=== PATIENT | female | born 1955 | race Caucasian/White ===

== ENCOUNTER 2019-11-04 17:08 | Emergency (ER) | payer MEDICAID ==
[~2019-11-04] VITALS: Ht 157.5 cm; Wt 40.0 kg
[~2019-11-04 17:08] MED LIST: ALBU18HF2 INH; ASPI81TA52 PO; BUDE10.2 INH; DOXY-1 PO; HYDR-4353 PO; LEVO75TA PO; MORP30TA PO; MORP60CP14 PO; OMEP20CA15 PO; ZOC40T PO; [UNRECOGNIZED DRUG - CODE] PO; metoprolol PO
[2019-11-04] MEDS ORDERED: metroNIDAZOLE 500mg tablet PO STA (18:11)
[2019-11-04] MEDS ORDERED: DOXYCYCLINE 100MG CAPSULE PO STA (18:11)
[2019-11-04] MEDS ORDERED: METR500T PO (18:16)
[2019-11-04 18:40] VITALS: BP 104/69
== END 2019-11-04 18:41 | disposition home or self-care (01) ==
LOC: ER 17:10
DX: S51.811D Laceration without foreign body of right forearm, subsequent encounter (principal); I25.2 Old myocardial infarction; G89.29 Other chronic pain; Z86.73 Personal history of transient ischemic attack (TIA), and cerebral infarction without residual deficits; Z91.018 Allergy to other foods; Z91.041 Radiographic dye allergy status; Z88.0 Allergy status to penicillin; Z88.2 Allergy status to sulfonamides; Z79.82 Long term (current) use of aspirin; W54.0XXD Bitten by dog, subsequent encounter
CPT/HCPCS: 99283; J3490

== ENCOUNTER 2025-02-15 09:19 | Outpatient (CLI) | payer MEDICARE, MEDICAID ==
[~2025-02-15 09:19] MED LIST changes: -DOXY-1 PO
--- NOTE | 2025-02-15 10:24 | RADIOLOGY REPORT ---
CT Chest without intravenous contrast INDICATION: LUNG CA SCREENING TECHNIQUE: Multidetector spiral CT of the chest was performed from the lung apices to the upper abdom en. Axial, coronal and sagittal multiplanar reformats were performed. Radiation dose : Chest: CTDI volume is 1 mGy. Dose-length product is 69 mGy*cm The dose indicators for CT are the volume computed tomography (CT) dose index (CTDIvol) and the dose length product (DLP), and are measured in units of mGy and mGy-cm, respectively. These indicators are not patient dose, but values generated from the CT scanner acquisition factors. The report includes radiation exposure data for exposures received during this examination. Comparison: None Findings: Lower neck: Normal thyroid. Lungs: Bilateral apical pleural-parenchymal scarring. Subpleural nodularity posterior right upper lob e. Ground-glass opacity right upper lobe. Atelectasis and scarring in the lung bases. Heart/Vascular Structures: Normal heart size. No pericardial effusion. Ascending aortic aneurysm jignesh uring up to 40 mm. Lymph Nodes: No adenopathy Pleura: No pleural effusion or significant pneumothorax. Musculoskeletal: Compression deformity of T3 and T4. Multilevel degenerative disease. Osteopenia. Soft tissues: Normal. Upper abdomen: Left kidney is surgically absent. Right renal cysts. IMPRESSION: 1. Bilateral apical pleural-parenchymal scarring. Subpleural nodularity in the right upper lobe. Gr ound-glass opacity in the right upper lobe. Atelectasis and scarring in the lung bases. Lung-RADS 3 -probably benign. Recommend follow-up chest CT in 6 months. 2. Ascending aortic aneurysm measuring up to 40 mm. Compression deformity of T3 and T4. Consider fur ther evaluation with MRI of the thoracic spine. Radiation optimization: All CT scans at this facility use at least one of these dose optimization michael hniques: Automated exposure control mA and/or kV adjustment per patient size (includes targeted exams where dose is matched to clinical indication) or iterative reconstruction. HS:Y
== END 2025-02-15 23:59 | disposition home or self-care (01) ==
LOC: RAD 09:19
DX: Z12.2 Encounter for screening for malignant neoplasm of respiratory organs (principal); R91.1 Solitary pulmonary nodule; J98.11 Atelectasis; J98.4 Other disorders of lung; I71.21 Aneurysm of the ascending aorta, without rupture; M51.34 Other intervertebral disc degeneration, thoracic region; M43.8X4 Other specified deforming dorsopathies, thoracic region; M85.88 Other specified disorders of bone density and structure, other site; N28.1 Cyst of kidney, acquired; Z90.5 Acquired absence of kidney; Z87.891 Personal history of nicotine dependence
CPT/HCPCS: 71271